=== PATIENT | female | born 1995 | race Caucasian/White ===

== ENCOUNTER 2018-04-14 23:19 | Emergency (ER) | payer MEDICAID ==
[~2018-04-14] VITALS: Ht 149.9 cm; Wt 61.2 kg
[2018-04-14 23:29] VITALS: Ht 149.9 cm; Wt 61.2 kg
[2018-04-15 01:48] VITALS: BP 119/78
== END 2018-04-15 01:48 | disposition home or self-care (01) ==
LOC: ED 23:19
DX: S90.562A Insect bite (nonvenomous), left ankle, initial encounter (principal); W57.XXXA Bitten or stung by nonvenomous insect and other nonvenomous arthropods, initial encounter; Y93.89 Activity, other specified; Y92.89 Other specified places as the place of occurrence of the external cause; Y99.8 Other external cause status